=== PATIENT | male | born 1935 | race Two or more races ===

== ENCOUNTER 2017-01-21 16:45 | Inpatient (IN) | payer MEDICARE ==
[~2017-01-21] VITALS: Ht 170.2 cm; Wt 62.5 kg
[2017-01-21 19:19] LABS: DEFINITIVE VIEW TRANSMISSION; Hematocrit 32.6 % (41.0-53.0); Hemoglobin 10.1 g/dL (13.5-17.5); Mean Corpuscular Hemoglobin 23.1 pg (28.0-32.0); Mean Corpuscular Volume 74.4 fL (80.0-100.0); Mean Platelet Volume 8.3 fL (7.4-10.4); Platelet Count (auto) 396 10^3/uL (140-450); White Blood Cell 14.6 10^3/uL (4.4-10.8)
[2017-01-21 19:20] LABS: Red Cell Distribution Width 20.8 % (11.6-16.0)
[2017-01-21 19:24] LABS: Metamyelocytes % 0; Myelocytes % 0; Promyelocytes % 0; Reactive Lymphocytes 0
[2017-01-21 19:35] LABS: INR 1.06 (0.9-1.15); Partial Thromboplastin Time 29.6 sec (22.64-33.71); Prothrombin Time 11.4 sec (9.37-12.3)
[2017-01-21 19:38] LABS: Anisocytosis Moderate; Hypochromia Moderate; Platelet Estimate Adequate
[2017-01-21 19:42] LABS: Albumin 2.8 g/dL (3.4-5.0); BUN/Creatinine Ratio 20.4; Calcium 8.9 mg/dL (8.5-10.1); Magnesium 2.2 mg/dL (1.6-2.6); Potassium 3.2 mmol/L (3.5-5.1)
[2017-01-21 19:47] LABS: Bilirubin, Total 0.5 mg/dL (0.2-1.0); Total Protein 7.7 g/dL (6.4-8.2)
[2017-01-21] MEDS ORDERED: METOPROLOL TARTRATE 1MG/1ML-5ML VIAL IV ONE (22:00)
[2017-01-21] MEDS ORDERED: cefTRIAXone 1GM/50ML D5W 50 ML IV ONE (23:00)
[2017-01-21 23:08] LABS: B-Type Natriuretic Peptide 368.33 pg/mL (0-100)
[2017-01-21 23:51] LABS: Urine Bilirubin Negative (Negative); Urine Color Yellow (Yellow); Urine Glucose Normal (Normal); Urine Granular Cast FEW /lpf (0); Urine Ketone Negative (Negative); Urine Mucus FEW (None Seen); Urine RBC 1 /hpf (0 - 3); Urine Squamous Epithelial Cell FEW /hpf (<5); Urine Urobilinogen Normal (Negative); Urine WBC Clumps PRESENT /hpf (None Seen); Urine pH 5.5 (5.0-8.0)
[2017-01-21 23:52] LABS: Urine Blood 2+ /uL (Negative); Urine Nitrite POSITIVE (Negative)
[2017-01-22] VITALS (61 sets, daily range): BP systolic 79–148; BP diastolic 38–86
[2017-01-22] MEDS ORDERED: SODIUM CHLORIDE 0.9% 1,000 ML IV SCH
[2017-01-22] MEDS ORDERED: ASPirin 81 mg TAB PO ONE
[2017-01-22] MEDS ORDERED: NITROGLYCERIN 0.4 MG SL TAB SL PRN
[2017-01-22] MEDS ORDERED: MORPHINE SULF INJ 2 MG/ML SYRINGE 1ML IV PRN
[2017-01-22] MEDS ORDERED: ATOR40TA52 PO (03:27)
[2017-01-22] MEDS ORDERED: RAMI1.2516 PO (03:27)
[2017-01-22] MEDS ORDERED: MET50T PO (03:27)
[2017-01-22] MEDS ORDERED: DOCU100C8 PO (03:27)
[2017-01-22] MEDS ORDERED: FIN5T PO (03:27)
[2017-01-22] MEDS ORDERED: NOR5T PO ×2 (03:27→03:31)
[2017-01-22] MEDS ORDERED: ASPI81TA13 PO (03:27)
[2017-01-22] MEDS ORDERED: TAMS0.4C36 PO (03:27)
[2017-01-22] MEDS ORDERED: APIX2.5T PO (03:28)
[2017-01-22] MEDS: METOPROLOL TARTRATE 1MG/1ML-5ML VIAL IV SCH ×2 (03:47→04:24)
[2017-01-22] MEDS: ACETAMINOPHEN 325 MG TAB PO PRN (03:47)
[2017-01-22 04:13] LABS: Basophils # (auto) 0 uL; Basophils % (auto) 0.1 % (0.0-2.0); DEFINITIVE VIEW TRANSMISSION; Eosinophils # (auto) 0 uL; Hematocrit 32.6 % (41.0-53.0); Hemoglobin 10.1 g/dL (13.5-17.5); Lymphocytes # (auto) 0.2 uL; Mean Corpuscular Hemoglobin 23.1 pg (28.0-32.0); Mean Corpuscular Hgb Conc. 30.9 g/dL (32.0-36.0); Mean Corpuscular Volume 74.7 fL (80.0-100.0); Mean Platelet Volume 8.5 fL (7.4-10.4); Monocytes # (auto) 0.1 uL; Monocytes % (auto) 1.2 % (0.0-12.0); Neutrophils # (auto) 9.7 uL; Neutrophils % (auto) 96.7 % (37.0-80.0); Platelet Count (auto) 349 10^3/uL (140-450); White Blood Cell 10.1 10^3/uL (4.4-10.8)
[2017-01-22] MEDS ORDERED: PIPERACILLIN-TAZOB 3.375GM 100 ML IV ONE (04:15)
[2017-01-22 04:20] LABS: Red Cell Distribution Width 21.3 % (11.6-16.0)
[2017-01-22 04:30] LABS: Albumin 2.7 g/dL (3.4-5.0); BUN/Creatinine Ratio 20.4; Calcium 8.8 mg/dL (8.5-10.1); Potassium 3.4 mmol/L (3.5-5.1)
[2017-01-22 04:37] LABS: Lactic Acid w/Reflex 2.6 mmol/L (0.4-2.0)
[2017-01-22 04:38] LABS: Bilirubin, Total 0.6 mg/dL (0.2-1.0); Total Protein 7.8 g/dL (6.4-8.2)
[2017-01-22 04:39] LABS: REFLEX LACTIC ACID YES OR NO YES
[2017-01-22 05:20] LABS: Anisocytosis Moderate; Hypochromia Moderate; Ovalocytes FEW; Platelet Estimate Adequate
[2017-01-22] MEDS ORDERED: SODIUM CHLORIDE 0.9% 1,000 ML IV ONE (07:00)
[2017-01-22] MEDS: SODIUM CHLORIDE 0.9% 1,000 ML IV SCH ×3 (08:49→21:20)
[2017-01-22] MEDS ORDERED: NOREPINEPHRINE BITARTRATE 250 ML IV ONE (09:51)
[2017-01-22] MEDS ORDERED: PANTOPRAZOLE 40 MG TAB PO SCH (10:00)
[2017-01-22] MEDS: NOREPINEPHRINE BITARTRATE 250 ML IV SCH (10:03)
[2017-01-22] MEDS: METOPROLOL TARTRATE 25 MG TAB PO SCH ×2 (10:43→23:30)
[2017-01-22] MEDS: ASPirin 81 mg TAB PO SCH (10:43)
[2017-01-22] MEDS: PIPERACILLIN-TAZOB 2.25GM 50 ML IV SCH ×3 (10:56→23:55)
[2017-01-22] MEDS: PANTOPRAZOLE SODIUM 40 MG/10 ML VIAL IV SCH (10:56)
[2017-01-22] MEDS ORDERED: ENOXAPARIN SOD 30 MG/0.3 ML SYRINGE SC SCH (10:58)
[2017-01-22] MEDS ORDERED: PIPERACILLIN-TAZOB 3.375GM 100 ML IV SCH (12:00)
[2017-01-22] MEDS ORDERED: cefTRIAXone 1GM/50ML D5W 50 ML IV SCH (22:00)
[2017-01-22] MEDS: ATORVASTATIN 20 MG TAB PO SCH (23:30)
[2017-01-23] VITALS (34 sets, daily range): BP systolic 96–162; BP diastolic 46–84
[2017-01-23] MEDS: SODIUM CHLORIDE 0.9% 1,000 ML IV SCH ×4 (03:02→23:32)
[2017-01-23 04:04] LABS: Basophils # (auto) 0 uL; DEFINITIVE VIEW TRANSMISSION; Eosinophils # (auto) 0 uL; Eosinophils % (auto) 0.1 % (0.0-7.0); Hematocrit 28.8 % (41.0-53.0); Hemoglobin 8.9 g/dL (13.5-17.5); Lymphocytes # (auto) 0.6 uL; Lymphocytes % (auto) 4.4 % (10.0-50.0); Mean Corpuscular Hemoglobin 23.3 pg (28.0-32.0); Mean Corpuscular Hgb Conc. 30.8 g/dL (32.0-36.0); Mean Corpuscular Volume 75.6 fL (80.0-100.0); Mean Platelet Volume 8.7 fL (7.4-10.4); Monocytes # (auto) 0.7 uL; Monocytes % (auto) 5.6 % (0.0-12.0); Neutrophils % (auto) 89.9 % (37.0-80.0); Platelet Count (auto) 319 10^3/uL (140-450); White Blood Cell 13.3 10^3/uL (4.4-10.8)
[2017-01-23 04:18] LABS: Potassium 3.1 mmol/L (3.5-5.1)
[2017-01-23 04:21] LABS: Red Cell Distribution Width 20.7 % (11.6-16.0)
[2017-01-23 04:22] LABS: BUN/Creatinine Ratio 24.6; Calcium 7.9 mg/dL (8.5-10.1)
[2017-01-23 05:07] LABS: Anisocytosis Moderate; Platelet Estimate Adequate
[2017-01-23 05:08] LABS: Hypochromia Moderate; Ovalocytes FEW
[2017-01-23 05:09] LABS: Burr Cells FEW
[2017-01-23] MEDS: PIPERACILLIN-TAZOB 2.25GM 50 ML IV SCH ×4 (06:38→23:47)
[2017-01-23] MEDS ORDERED: POTASSIUM CHL 20 Meq TABLET PO ONE (09:45)
[2017-01-23] MEDS: NOREPINEPHRINE BITARTRATE 250 ML IV SCH (10:00)
[2017-01-23] MEDS ORDERED: ENOXAPARIN SOD 40 MG/0.4 ML SYRINGE SC SCH (10:00)
[2017-01-23] MEDS: ASPirin 81 mg TAB PO SCH (10:51)
[2017-01-23] MEDS: METOPROLOL TARTRATE 25 MG TAB PO SCH ×2 (10:52→21:16)
[2017-01-23] MEDS: APIXABAN 2.5 MG TAB PO SCH ×2 (10:52→21:16)
[2017-01-23] MEDS: PANTOPRAZOLE SODIUM 40 MG/10 ML VIAL IV SCH (10:52)
[2017-01-23] MEDS: ATORVASTATIN 20 MG TAB PO SCH (21:15)
[2017-01-23] MEDS: ACETAMINOPHEN 325 MG TAB PO PRN (21:16)
[2017-01-24 05:00] VITALS: BP 123/68
[2017-01-24] MEDS: SODIUM CHLORIDE 0.9% 1,000 ML IV SCH ×3 (05:25→22:48)
[2017-01-24] MEDS: PIPERACILLIN-TAZOB 2.25GM 50 ML IV SCH (05:33)
[2017-01-24 06:02] LABS: Basophils # (auto) 0 uL; DEFINITIVE VIEW TRANSMISSION; Eosinophils # (auto) 0.1 uL; Eosinophils % (auto) 1.1 % (0.0-7.0); Hematocrit 29.3 % (41.0-53.0); Hemoglobin 8.9 g/dL (13.5-17.5); Lymphocytes # (auto) 0.7 uL; Lymphocytes % (auto) 8.8 % (10.0-50.0); Mean Corpuscular Hgb Conc. 30.3 g/dL (32.0-36.0); Mean Corpuscular Volume 75.9 fL (80.0-100.0); Monocytes # (auto) 0.8 uL; Monocytes % (auto) 9.5 % (0.0-12.0); Neutrophils # (auto) 6.6 uL; Neutrophils % (auto) 80.6 % (37.0-80.0); Platelet Count (auto) 304 10^3/uL (140-450); White Blood Cell 8.1 10^3/uL (4.4-10.8)
[2017-01-24 06:06] LABS: Red Cell Distribution Width 20.4 % (11.6-16.0)
[2017-01-24 06:28] LABS: Calcium 8.2 mg/dL (8.5-10.1); Potassium 3.7 mmol/L (3.5-5.1)
[2017-01-24 06:32] LABS: BUN/Creatinine Ratio 20.2
[2017-01-24 06:57] LABS: Anisocytosis Slight; Platelet Estimate Adequate
[2017-01-24 06:58] LABS: Hypochromia Slight; Ovalocytes FEW
[2017-01-24] MEDS: NOREPINEPHRINE BITARTRATE 250 ML IV SCH (09:21)
[2017-01-24] MEDS: ASPirin 81 mg TAB PO SCH (09:41)
[2017-01-24] MEDS: PANTOPRAZOLE SODIUM 40 MG/10 ML VIAL IV SCH (09:41)
[2017-01-24] MEDS: APIXABAN 2.5 MG TAB PO SCH ×2 (09:41→22:49)
[2017-01-24] MEDS: METOPROLOL TARTRATE 25 MG TAB PO SCH ×2 (09:42→22:49)
[2017-01-24 09:53] VITALS: BP 131/79
[2017-01-24] MEDS: MEROPENEM 1GM IVPB 100 ML IV SCH ×2 (11:09→22:48)
[2017-01-24 14:34] LABS: INR 1.02 (0.9-1.15)
[2017-01-24 14:59] VITALS: BP 123/91
[2017-01-24] MEDS ORDERED: LIDOCAINE 1% HCL (LOCAL ANESTH.) INJ 20ML MDV ID ONE (16:30)
[2017-01-24 16:31] VITALS: BP 132/76
[2017-01-24] MEDS: SODIUM CHLOR 0.9% PF (SALINE LOCK) 10ML VIAL IV SCH (22:48)
[2017-01-24] MEDS: ATORVASTATIN 20 MG TAB PO SCH (22:49)
[2017-01-25 00:18] VITALS: BP 129/79
[2017-01-25] MEDS: SODIUM CHLORIDE 0.9% 1,000 ML IV SCH ×3 (01:51→13:35)
[2017-01-25 05:42] VITALS: BP 120/74
[2017-01-25 07:07] LABS: Basophils # (auto) 0 uL; Basophils % (auto) 0.4 % (0.0-2.0); DEFINITIVE VIEW TRANSMISSION; Eosinophils # (auto) 0.1 uL; Eosinophils % (auto) 1.8 % (0.0-7.0); Hematocrit 28.1 % (41.0-53.0); Hemoglobin 8.8 g/dL (13.5-17.5); Lymphocytes # (auto) 0.9 uL; Lymphocytes % (auto) 12.3 % (10.0-50.0); Mean Corpuscular Hemoglobin 23.2 pg (28.0-32.0); Mean Corpuscular Hgb Conc. 31.1 g/dL (32.0-36.0); Mean Corpuscular Volume 74.6 fL (80.0-100.0); Mean Platelet Volume 8.8 fL (7.4-10.4); Monocytes # (auto) 0.8 uL; Monocytes % (auto) 11.2 % (0.0-12.0); Neutrophils # (auto) 5.5 uL; Neutrophils % (auto) 74.3 % (37.0-80.0); Platelet Count (auto) 308 10^3/uL (140-450); White Blood Cell 7.4 10^3/uL (4.4-10.8)
[2017-01-25 07:08] LABS: Red Cell Distribution Width 20.6 % (11.6-16.0)
[2017-01-25 07:20] LABS: Anisocytosis Slight; Hypochromia Slight; Ovalocytes FEW; Platelet Estimate Adequate
[2017-01-25 07:27] LABS: BUN/Creatinine Ratio 16.7; Potassium 3.3 mmol/L (3.5-5.1)
[2017-01-25 08:02] VITALS: BP 136/76
[2017-01-25] MEDS: ASPirin 81 mg TAB PO SCH (10:20)
[2017-01-25] MEDS: APIXABAN 2.5 MG TAB PO SCH (10:20)
[2017-01-25] MEDS: SODIUM CHLOR 0.9% PF (SALINE LOCK) 10ML VIAL IV SCH (10:20)
[2017-01-25] MEDS: PANTOPRAZOLE SODIUM 40 MG/10 ML VIAL IV SCH (10:20)
[2017-01-25] MEDS: MEROPENEM 1GM IVPB 100 ML IV SCH (10:20)
[2017-01-25] MEDS: METOPROLOL TARTRATE 25 MG TAB PO SCH (10:21)
[2017-01-25 13:14] VITALS: BP 120/70
[2017-01-25 16:33] VITALS: BP 127/75
[2017-01-25] MEDS ORDERED: MEROPENEM 1GM IVPB 100 ML IV SCH (18:00)
== END 2017-01-25 18:20 | disposition home or self-care (01) | DRG 871 ==
LOC: EDBD 16:45 → ER 16:49 → TELE 16:50 → TELE-WESTW 01-22 01:00 → ICU WEST 01-22 08:20 → TELE-WESTW 01-23 16:58
PROVIDERS: ADMIT Internal Medicine; ATTEND Internal Medicine
PROC: 02HV33Z Insertion of Infusion Device into Superior Vena Cava, Percutaneous Approach (ICD-10-PCS; principal; 2017-01-24)
DX: A41.51 Sepsis due to Escherichia coli [E. coli] (principal); I21.4 Non-ST elevation (NSTEMI) myocardial infarction; R65.21 Severe sepsis with septic shock; N39.0 Urinary tract infection, site not specified; I13.10 Hypertensive heart and chronic kidney disease without heart failure, with stage 1 through stage 4 chronic kidney disease, or unspecified chronic kidney disease; N18.9 Chronic kidney disease, unspecified; I48.91 Unspecified atrial fibrillation; B96.20 Unspecified Escherichia coli [E. coli] as the cause of diseases classified elsewhere; B96.89 Other specified bacterial agents as the cause of diseases classified elsewhere; Z16.12 Extended spectrum beta lactamase (ESBL) resistance; Z79.82 Long term (current) use of aspirin; Z82.49 Family history of ischemic heart disease and other diseases of the circulatory system; Z86.73 Personal history of transient ischemic attack (TIA), and cerebral infarction without residual deficits
CPT/HCPCS: 36415; 36569; 70450; 71010; 80048; 80053; 81001; 81002; 82962; 83605; 83735; 83880; 84132; 84443; 84484; 85007; 85025; 85027; 85610; 85730; 86141; 87040; 87077; 87081; 87086; 87088; 87186; 87205; 93005; 93306; 94761; 96365; 96375; C9113; J0696; J2185; J2543